=== PATIENT | female | born 1935 | race Asian ===

== ENCOUNTER 2018-01-23 13:18 | Emergency (ER) | payer BC, MEDICARE ==
[~2018-01-23] VITALS: Ht 152.4 cm; Wt 54.4 kg
[2018-01-23 13:34] VITALS: BP 160/81
== END 2018-01-23 15:22 | disposition home or self-care (01) ==
LOC: ER 13:18 → EDBD 13:18 → ER 15:20
DX: S20.211A Contusion of right front wall of thorax, initial encounter (principal); V43.52XA Car driver injured in collision with other type car in traffic accident, initial encounter; Y93.89 Activity, other specified; Y92.488 Other paved roadways as the place of occurrence of the external cause; Y99.8 Other external cause status
CPT/HCPCS: 70450; 71046